=== PATIENT | female | born 1940 | race African-American/Black ===

== ENCOUNTER 2018-04-05 11:32 | Emergency (ER) | payer OTHER ==
[~2018-04-05] VITALS: Ht 152.4 cm; Wt 52.2 kg
[~2018-04-05 11:32] MED LIST: CLIDINIUM W-CDP1 CAP; FOSINOPRIL SODI10 MG; GASTRINEX CAPSU1 CAP; TENORETIC 100 T1 TAB; ULTRAM ER100 MG PO
[2018-04-05] MEDS ORDERED: ATENOLOL25 MG (11:57)
[2018-04-05] MEDS ORDERED: SEROQUEL200 MG PO (11:58)
[2018-04-05] MEDS ORDERED: PRAVASTATIN SOD20 MG (11:58)
[2018-04-05] MEDS ORDERED: COQ-10100 MG (11:59)
[2018-04-05] MEDS ORDERED: SPIRONOLACTONE25 MG (12:00)
== END 2018-04-05 13:31 | disposition home or self-care (01) ==
LOC: ER 11:32
DX: H66.91 Otitis media, unspecified, right ear (principal)

== ENCOUNTER 2018-04-12 09:11 | Emergency (ER) | payer OTHER ==
[~2018-04-12] VITALS: Ht 152.4 cm; Wt 52.2 kg
[~2018-04-12 09:11] MED LIST changes: +ATENOLOL25 MG; +COQ-10100 MG; +PRAVASTATIN SOD20 MG; +SEROQUEL200 MG PO; +SPIRONOLACTONE25 MG
== END 2018-04-12 13:24 | disposition home or self-care (01) ==
LOC: ER 09:11
DX: M54.2 Cervicalgia (principal); E04.2 Nontoxic multinodular goiter

== ENCOUNTER 2018-11-11 00:33 | Emergency (ER) | payer OTHER ==
[~2018-11-11] VITALS: Ht 152.4 cm; Wt 45.4 kg
[2018-11-11] MEDS ORDERED: LORAZEPAM2 MG/1 ML (00:46)
== END 2018-11-11 09:55 | disposition home or self-care (01) ==
LOC: ER 00:33
DX: I63.89 Other cerebral infarction (principal); G45.8 Other transient cerebral ischemic attacks and related syndromes; R55 Syncope and collapse; G93.89 Other specified disorders of brain; G30.8 Other Alzheimer's disease; F02.80 Dementia in other diseases classified elsewhere, unspecified severity, without behavioral disturbance, psychotic disturbance, mood disturbance, and anxiety; E78.49 Other hyperlipidemia; I16.1 Hypertensive emergency; I10 Essential (primary) hypertension

== ENCOUNTER 2019-05-06 15:35 | Emergency (ER) | payer OTHER ==
[~2019-05-06] VITALS: Ht 152.4 cm; Wt 45.4 kg
[~2019-05-06 15:35] MED LIST changes: +LORAZEPAM2 MG/1 ML
== END 2019-05-06 17:17 | disposition home or self-care (01) ==
LOC: ER 15:35
DX: S00.83XA Contusion of other part of head, initial encounter (principal); W06.XXXA Fall from bed, initial encounter; Y93.89 Activity, other specified; Y92.013 Bedroom of single-family (private) house as the place of occurrence of the external cause; Y99.8 Other external cause status

== ENCOUNTER → 2022-04-29 | Emergency (ER) | payer OTHER ==
[~2022-04-29] VITALS: Ht 165.1 cm; Wt 86.2 kg
== END | disposition expired ==
LOC: ER 00:47